=== PATIENT | female | born 1995 | race Caucasian/White ===

== ENCOUNTER 2019-03-19 20:28 | Outpatient (REF) | payer MEDICARE, MEDICAID, SELFPAY | END 2019-03-19 20:48 | LOC: NCHCN 20:28 | PROVIDERS: PCP Family Medicine; Visit Provider Family Medicine | DX: R35.0 Frequency of micturition (principal) | CPT/HCPCS: 87077; 87086; 87186 ==

== ENCOUNTER 2019-12-08 16:03 | Outpatient (CLI) | payer MEDICARE, MEDICAID, SELFPAY ==
--- NOTE | 2019-12-08 | DI.RAD_ITS ---
EXAM: 2D digital imaging was performed. CLINICAL HISTORY: CHRONIC CONSTIPATION K59.09. COMPARISON: No exams were available for comparison TECHNIQUE: Supine views of the abdomen performed. FINDINGS: There is an increased quantity of stool seen in the right and transverse colon and moderate quantity of stool seen in the descending colon. There is no abnormal colonic distention. No small bowel dila tation or air-fluid levels are seen. Visualized portions of the lung bases are clear. No free air i s seen. IMPRESSION: Increased quantity of stool. No findings to suggest obstruction. DATA REPOSITORY: RADIATION DOSE DELIVERED:
== END 2019-12-08 16:23 ==
PROVIDERS: PCP Family Medicine; Visit Provider Family Medicine
DX: K59.09 Other constipation (principal)
CPT/HCPCS: 74019

== ENCOUNTER 2024-02-13 16:41 | Outpatient (REF) | payer MEDICARE, MEDICAID, SELFPAY | END 2024-02-13 16:42 | disposition home or self-care (01) | LOC: NCHCN 16:41 | PROVIDERS: PCP Family Medicine; Visit Provider Family Medicine | DX: N39.0 Urinary tract infection, site not specified (principal); R82.89 Other abnormal findings on cytological and histological examination of urine | CPT/HCPCS: 87086 ==